=== PATIENT | male | born 1960 | race Caucasian/White ===

== ENCOUNTER 2021-06-14 15:26 | Emergency (ER) | payer OTHER, SELFPAY ==
--- NOTE | 2021-06-14 15:42 | ED.WOUNDLAC ---
HPI - Wound/Laceration General Chief Complaint: Wound/Laceration Stated Complaint: infection right hand Time Seen by Provider: 06/14/21 15:31 Source: patient and RN notes reviewed Limitations: no limitations History of Present Illness HPI narrative: The right-handed patient, previously mostly healthy, presents with skin eruption. Patient states he was working on [employer], when he sustained a laceration to the webspace of his right thumb nearly a week ago. He now complains of a couple day history of redness streaking up proximally along the extensor forearm. No fever, abscess/induration, thumb weakness, numbness, foreign body. Symptoms are mild, better with elevation Related Data Home Medications Medication Instructions Recorded Confirmed pravastatin 10 mg PO DAILY 06/14/21 06/14/21 Allergies Allergy/AdvReac Type Severity Reaction Status Date / Time No Known Allergies Allergy Verified 06/14/21 15:43 Review of Systems Review of Systems: The patient has been informed that they may have pre-hypertension or Hypertension based on a BP reading in the department. I recommend that the patient call the primary care provider listed on their discharge instructions or a physician of their choice this week to arrange follow up for further evaluation of possible pre-hypertension or Hypertension General/Constitutional: No weight loss,fever Eyes: N0: Redness,discharge Ears/Nose/Throat: No: Epistaxis,ear discharge Respiratory: Denies: Hemoptysis Gastrointestinal: No Vomiting, Bleeding-rectal Skin: No Lumps, REPORTS eruption Neurologic: No Focal Weakness,Sz Hematologic: Denies: Petechiae/Purpura Psychiatric: No: Suicida ideationl All Other Systems: Reviewed and Negative PMFSH Comments At time of signature, agree with nursing past medical, surgical, social and family history. There is no relevant family history pertinent to the presenting complaint Exam Narrative: General Appearance: Well appearing, conjunctiva clear Mouth/Throat: Normal appearing, Normal lips, Supple Respiratory: Airway patent, No respiratory distress Skin: Warm, Dry; Color; streaking lymphangitiis of the distal radial wrist, well-healing puncture wound of the thumb webspace MS-hand: Normal strength (mostly intact, almost unlimited flexion/extension by pain), mild tenderness (thumb webspace, with mild decreased ROM), scant swelling (laterally), Other (no anterior drawer, no collateral laxity,) Neurological: A&O x3, normal affect Course Vital Signs Vital signs: Vital Signs Temperature 97.8 F 06/14/21 15:45 Pulse Rate 78 06/14/21 15:45 Respiratory Rate 18 06/14/21 15:45 Blood Pressure 151/87 H 06/14/21 15:45 Pulse Oximetry 99 06/14/21 15:45 Temperature 97.8 F 06/14/21 15:45 Pulse Rate 78 06/14/21 15:45 Respiratory Rate 18 06/14/21 15:45 Blood Pressure 151/87 H 06/14/21 15:45 Pulse Oximetry 99 06/14/21 15:45 Discharge Plan Discharge Clinical Impression: Cellulitis Qualifiers: Site of cellulitis: extremity Site of cellulitis of extremity: upper extremity Laterality: right Qualified Code(s): L03.113 - Cellulitis of right upper limb Patient Disposition: Home, Self-Care Condition: Stable Instructions: Antibiotic Form, Cellulitis (ED) Additional Instructions: Take clindamycin with food, antiacid and/or probiotic; stop if diarrhea occurs Keep photo log of area to track area of involvement Return if worsens to hospital Prescriptions: New clindamycin HCl 300 mg capsule 300 mg PO TID Qty: 15 RF: 0 No Action pravastatin 10 mg Tablet 10 mg PO DAILY RF: 0 Follow-up/Referrals: UNKNOWN,DOCTOR [Primary Care Provider] -
[2021-06-14 15:45] VITALS: BP 151/87; PULSE 78; RESP 18; TEMP 36.6; O2SAT 99
[2021-06-14] MEDS: LIDOCAINE HCL 1% LOCAL INJ 20 ML VIAL 2.1 ML XX (16:02)
[2021-06-14] MEDS: cefTRIAXone 1 GM VIAL 0.5 GM IM (16:02)
[2021-06-14] MEDS: TETANUS,DIPHTHERIA,AC PERTUSSIS ADULT (0.5 ML) BOOSTRIX IM (16:03)
== END 2021-06-14 16:14 | disposition home or self-care (01) ==
PROVIDERS: Emergency Provider Emergency Medicine
DX: L03.113 Cellulitis of right upper limb (principal); Z23 Encounter for immunization
CPT/HCPCS: 90471; 90714; 90715; 96372; 99203; G0463; J0696